=== PATIENT | female | born 1940 | race Caucasian/White ===

== ENCOUNTER 2017-07-11 10:55 | Inpatient (IN) | payer MEDICARE, OTHER ==
[2017-07-09 12:15] LABS: HEMATOCRIT 40.3 % (34.6-47.8); HEMOGLOBIN 13.1 g/dL (11.7-16.4); WHITE BLOOD COUNT 7.1 x10^3/uL (3.4-10)
[2017-07-09 12:22] LABS: BLOOD UREA NITROGEN 9 mg/dL (7-18)
[2017-07-09 12:26] LABS: ASPARTATE AMINO TRANSFERASE 10 U/L (15-37)
[~2017-07-11] VITALS: Ht 167.6 cm; Wt 76.0 kg
[~2017-07-11 10:55] MED LIST: ATOR10TA9 PO; BUDE3CAP2 PO; CALC-173 PO; CARB1TAB47 PO; CHOL10003 PO; DULO30CA2 PO; EPINEPHRINE 1 MG/ML, 1ML ONE; KETOROLAC 60 MG/2 ML ONE; LACT1CAP35 PO; LAMO25TA PO; LEVO75TA5 PO; METH500T7 PO; MULT-658 PO; ROPIvacaine/PF 0.2%, 20 ML ONE; SODIUM CHLORIDE 0.9% 100 ML ONE; TRAM50TA2 PO; TRANEXAMIC ACID 100 MG/ML, 10ML ONE; TRAZ100T15 PO; VANCOMYCIN 1,000 MG ONE
[2017-07-11] MEDS ORDERED: LACTATED RINGERS 1,000 ML IV SCH (14:25)
[2017-07-11] MEDS ORDERED: GABAPENTIN 300 MG CAPSULE PO STA (14:28)
[2017-07-11] MEDS ORDERED: FAMOTIDINE 20 MG TABLET PO STA (14:28)
[2017-07-11] MEDS ORDERED: ACETAMINOPHEN 500 MG TABLET PO STA (14:28)
[2017-07-11] MEDS ORDERED: MIDAZOLAM 1 MG/ML, 2ML ONE (14:37)
[2017-07-11] MEDS ORDERED: FENTANYL PF 250 MCG/5ML ONE (14:37)
[2017-07-11] MEDS ORDERED: PROPOFOL 10 MG/ML, 20ML ONE (14:39)
[2017-07-11] MEDS ORDERED: DEXAMETHASONE 4 MG/ML, 1ML ONE (14:39)
[2017-07-11] MEDS ORDERED: ONDANSETRON 2MG/ML, 2ML ONE (14:39)
[2017-07-11] MEDS ORDERED: CEFAZOLIN 1,000 MG ONE (14:39)
[2017-07-11] MEDS ORDERED: ACETAMINOPHEN 500 MG TABLET ONE (14:45)
[2017-07-11] MEDS ORDERED: OxyconTIN ER 10 MG TAB.ER ONE (14:45)
[2017-07-11] MEDS ORDERED: VANCOMYCIN PER PHARMACY MC SCH (14:45)
[2017-07-11] MEDS ORDERED: FAMOTIDINE 40 MG TABLET ONE (14:45)
[2017-07-11] MEDS ORDERED: GABAPENTIN 300 MG CAPSULE ONE (14:46)
[2017-07-11] MEDS ORDERED: OxyconTIN ER 10 MG TAB.ER PO STA (14:52)
[2017-07-11] MEDS ORDERED: METHOCARBAMOL 500 MG TABLET PO PRN (15:00)
[2017-07-11] MEDS ORDERED: ONDANSETRON 2MG/ML, 2ML IV PRN (15:00)
[2017-07-11] MEDS ORDERED: SENNA/DOCUSATE TABLET PO PRN (15:00)
[2017-07-11] MEDS ORDERED: BISACODYL 10 MG SUPP PR PRN (15:00)
[2017-07-11] MEDS ORDERED: ONDANSETRON 4 MG TABLET PO PRN (15:00)
[2017-07-11] MEDS ORDERED: MAGNESIUM HYDROXIDE 8%, 30ML UDC PO PRN (15:00)
[2017-07-11] MEDS ORDERED: HYDROcodone/APAP 5/325 TABLET PO PRN (15:00)
[2017-07-11] MEDS ORDERED: ZOLPIDEM 5MG TABLET PO PRN (15:00)
[2017-07-11] MEDS ORDERED: SCOPOLAMINE PATCH, 1.5MG PATCH.TD72 TD ONE (15:00)
[2017-07-11] MEDS ORDERED: ACETAMINOPHEN 650 MG/20.3 ML UDC PO PRN (15:00)
[2017-07-11] MEDS ORDERED: CEFAZOLIN PMX 2GM/50ML 50 ML IVPB SCH (15:00)
[2017-07-11] MEDS ORDERED: DIPHENHYDRAMINE 50 MG CAPSULE PO PRN (15:00)
[2017-07-11] MEDS ORDERED: TRAZODONE 100MG TABLET PO PRN (15:00)
[2017-07-11] MEDS ORDERED: VANCOMYCIN 1,600 MG in SODIUM CHLORIDE 0.9% 250 ML IV ONE (15:30)
[2017-07-11] MEDS ORDERED: LABETALOL 5MG/ML, 20ML ONE (15:41)
[2017-07-11] MEDS ORDERED: DIAZEPAM 5 MG/ML, 2ML IVPush PRN (16:00)
[2017-07-11] MEDS ORDERED: PROMETHAZINE 25 MG/ML, 1ML IV PRN (16:00)
[2017-07-11] MEDS ORDERED: ONDANSETRON 2MG/ML, 2ML IVPush PRN (16:00)
[2017-07-11] MEDS ORDERED: MIDAZOLAM 1 MG/ML, 2ML IV PRN (16:00)
[2017-07-11] MEDS ORDERED: ALBUTEROL/IPRATROPIUM 2.5MG/0.5MG, 3 ML NPPB PRN (16:00)
[2017-07-11] MEDS ORDERED: OXYcodone 5 MG/5 ML ORAL.SOL UDC PO PRN (16:00)
[2017-07-11] MEDS ORDERED: hydrALAzine 20 MG/ML, 1ML IV PRN (16:00)
[2017-07-11] MEDS ORDERED: MEPERIDINE/PF 25MG/0.5ML IVPush PRN (16:00)
[2017-07-11] MEDS ORDERED: TEMPLATE NON-FORMULARY MED. (Carbidopa/Levodopa** (Carbidopa-Levo 25-100 Mg Odt**) 1 TAB) PO SCH (16:00)
[2017-07-11] MEDS ORDERED: HYDROmorphone 1 MG/ML, 1ML IV PRN (16:00)
[2017-07-11] MEDS ORDERED: LABETALOL 5MG/ML, 20ML IV PRN (16:00)
[2017-07-11] MEDS ORDERED: SUCCINYLCHOLINE 20 MG/ML, 10ML ONE (16:01)
[2017-07-11] MEDS ORDERED: NEOSTIGMINE 1 MG/ML, 10ML ONE (16:01)
[2017-07-11] MEDS ORDERED: GLYCOPYRROLATE 0.4 MG/2 ML, 2ML ONE ×2 (16:01)
[2017-07-11] MEDS ORDERED: ROCURONIUM 10 MG/ML,10ML ONE (16:01)
[2017-07-11] MEDS ORDERED: LIDOCAINE GEL 2%, 5ML ONE (16:07)
[2017-07-11] MEDS ORDERED: OXYcodone 5 MG/5 ML ORAL.SOL UDC ONE (16:58)
[2017-07-11] MEDS ORDERED: FENTANYL PF 100 MCG/2ML ONE ×2 (16:58→17:53)
[2017-07-11] MEDS: FENTANYL PF 100 MCG/2ML IV PRN ×4 (17:00→17:55)
[2017-07-11 18:40] VITALS: BP 111/48
[2017-07-11] MEDS: NS + 20MEQ KCL 1,000 ML IV SCH (20:14)
[2017-07-11] MEDS: DOCUSATE 100 MG CAPSULE PO SCH (20:15)
[2017-07-11] MEDS: ATORVASTATIN 10 MG TABLET PO SCH (20:15)
[2017-07-11] MEDS: ASPIRIN 81 MG TABLET EC PO SCH (20:15)
[2017-07-11] MEDS: OXYcodone IR 5MG TABLET PO PRN (21:34)
[2017-07-11] MEDS: LAMOTRIGINE 25 MG TABLET PO SCH (22:56)
[2017-07-11] MEDS: CARBIDOPA/LEVODOPA 25 MG/100 MG TABLET PO SCH (22:56)
[2017-07-11] MEDS: CEFAZOLIN 2,000 MG in DEXTROSE 5% 50 ML IVPB SCH (22:57)
[2017-07-12 01:02] VITALS: BP 101/48
[2017-07-12 05:15] VITALS: BP 104/55
[2017-07-12] MEDS: ASPIRIN 81 MG TABLET EC PO SCH ×2 (05:35→18:35)
[2017-07-12] MEDS: OXYcodone IR 5MG TABLET PO PRN ×4 (05:36→21:35)
[2017-07-12 05:58] LABS: HEMATOCRIT 30.4 % (34.6-47.8); HEMOGLOBIN 10.1 g/dL (11.7-16.4)
[2017-07-12] MEDS ORDERED: DEXAMETHASONE 4 MG/ML, 1ML IVPush SCH (06:00)
[2017-07-12] MEDS: CEFAZOLIN 2,000 MG in DEXTROSE 5% 50 ML IVPB SCH (06:08)
[2017-07-12] MEDS: NS + 20MEQ KCL 1,000 ML IV SCH ×2 (08:00→20:30)
[2017-07-12] MEDS: LAMOTRIGINE 25 MG TABLET PO SCH ×2 (08:01→21:36)
[2017-07-12] MEDS: DOCUSATE 100 MG CAPSULE PO SCH ×2 (08:01→21:37)
[2017-07-12] MEDS: LEVOTHYROXINE 75 MCG TABLET PO SCH (08:01)
[2017-07-12] MEDS: BUDESONIDE 3 MG CAP DR.ER PO SCH (08:02)
[2017-07-12] MEDS: DULOXETINE 30 MG CAPSULE.DR PO SCH (08:03)
[2017-07-12] MEDS: CARBIDOPA/LEVODOPA 25 MG/100 MG TABLET PO SCH ×3 (08:03→21:37)
[2017-07-12] MEDS: ACETAMINOPHEN 500 MG TABLET PO SCH ×3 (08:05→21:35)
[2017-07-12 08:30] VITALS: BP 111/62
[2017-07-12 12:07] VITALS: BP 95/47
[2017-07-12 16:06] VITALS: BP 114/41
[2017-07-12 20:00] VITALS: BP 97/43
[2017-07-12] MEDS: ATORVASTATIN 10 MG TABLET PO SCH (21:36)
[2017-07-13 02:48] VITALS: BP 142/65
[2017-07-13 04:56] LABS: HEMATOCRIT 26.1 % (34.6-47.8); HEMOGLOBIN 8.9 g/dL (11.7-16.4)
[2017-07-13] MEDS: LEVOTHYROXINE 75 MCG TABLET PO SCH (05:59)
[2017-07-13] MEDS: ASPIRIN 81 MG TABLET EC PO SCH ×2 (05:59→17:44)
[2017-07-13] MEDS: NS + 20MEQ KCL 1,000 ML IV SCH ×2 (08:10→22:31)
[2017-07-13] MEDS: DULOXETINE 30 MG CAPSULE.DR PO SCH (08:15)
[2017-07-13] MEDS: LAMOTRIGINE 25 MG TABLET PO SCH ×2 (08:15→21:14)
[2017-07-13] MEDS: CARBIDOPA/LEVODOPA 25 MG/100 MG TABLET PO SCH ×3 (08:15→21:16)
[2017-07-13] MEDS: DOCUSATE 100 MG CAPSULE PO SCH ×2 (08:15→21:14)
[2017-07-13] MEDS: ACETAMINOPHEN 500 MG TABLET PO SCH ×3 (08:15→21:14)
[2017-07-13] MEDS: BUDESONIDE 3 MG CAP DR.ER PO SCH (09:00)
[2017-07-13 10:23] VITALS: BP 102/61
[2017-07-13 14:04] VITALS: BP 108/59
[2017-07-13] MEDS: OXYcodone IR 5MG TABLET PO PRN ×2 (17:44→22:31)
[2017-07-13] MEDS ORDERED: DIPHENHYDRAMINE 25 MG CAPSULE ONE (21:05)
[2017-07-13] MEDS: ATORVASTATIN 10 MG TABLET PO SCH (21:16)
[2017-07-13 21:58] VITALS: BP 127/65
[2017-07-14 02:00] VITALS: BP 122/77
[2017-07-14] MEDS: OXYcodone IR 5MG TABLET PO PRN ×3 (02:19→12:55)
[2017-07-14 03:04] LABS: HEMOGLOBIN 8.6 g/dL (11.7-16.4)
[2017-07-14] MEDS: ASPIRIN 81 MG TABLET EC PO SCH (05:53)
[2017-07-14] MEDS: LEVOTHYROXINE 75 MCG TABLET PO SCH (05:54)
[2017-07-14] MEDS ORDERED: OXYC5TAB3 PO (07:54)
[2017-07-14] MEDS ORDERED: TRAM50TA2 PO (07:54)
[2017-07-14] MEDS ORDERED: ONDA4TAB10 PO (07:55)
[2017-07-14] MEDS ORDERED: MELO7.5T31 PO (07:55)
[2017-07-14] MEDS: DULOXETINE 30 MG CAPSULE.DR PO SCH (09:08)
[2017-07-14] MEDS: BUDESONIDE 3 MG CAP DR.ER PO SCH (09:09)
[2017-07-14 09:10] VITALS: BP 121/54
[2017-07-14] MEDS: LAMOTRIGINE 25 MG TABLET PO SCH (09:10)
[2017-07-14] MEDS: ACETAMINOPHEN 500 MG TABLET PO SCH (09:10)
[2017-07-14] MEDS: CARBIDOPA/LEVODOPA 25 MG/100 MG TABLET PO SCH (09:11)
[2017-07-14] MEDS: DOCUSATE 100 MG CAPSULE PO SCH (09:19)
[2017-07-14] MEDS: NS + 20MEQ KCL 1,000 ML IV SCH (10:55)
[2017-07-14 13:00] VITALS: BP 129/59
[2017-07-14] MEDS ORDERED: ASPI-496 PO (13:46)
[2017-07-14 15:35] VITALS: BP 128/59
== END 2017-07-14 15:45 | disposition home or self-care (01) | DRG 469 ==
LOC: EDSTATUS 11:48 → ORIP 14:03 → 4NOR 18:28
PROVIDERS: ADMIT Orthopaedic Surgery; ATTEND Orthopaedic Surgery
PROC: 0SRB02A Replacement of Left Hip Joint with Metal on Polyethylene Synthetic Substitute, Uncemented, Open Approach (ICD-10-PCS; principal; 2017-07-11 16:15)
DX: M16.12 Unilateral primary osteoarthritis, left hip (principal); S72.113A Displaced fracture of greater trochanter of unspecified femur, initial encounter for closed fracture
CPT/HCPCS: 36415; 72170; 76000; 80053; 83036; 85014; 85018; 85025; 85610; 85730; 86850; 86870; 86900; 86922; 86923; 87081; 93005; C1713; J0171; J0690; J1100; J1885; J2250; J2405; J2704; J2710; J2795; J3010; J3370; J3480; C1776; J0330; J7120

== ENCOUNTER → 2017-09-18 | Outpatient (CLI) | payer OTHER ==
[~2017-09-18] MED LIST changes: +ACET-76 PO; +ASPI-496 PO; -EPINEPHRINE 1 MG/ML, 1ML ONE; -KETOROLAC 60 MG/2 ML ONE; +MELO7.5T31 PO; +ONDA4TAB10 PO; +OXYC5TAB3 PO; -ROPIvacaine/PF 0.2%, 20 ML ONE; -SODIUM CHLORIDE 0.9% 100 ML ONE; -TRANEXAMIC ACID 100 MG/ML, 10ML ONE; -VANCOMYCIN 1,000 MG ONE
[2017-09-18 15:46] LABS: BASOPHILS # (AUTO) 0.03 x10^3/uL (0-0.1); BASOPHILS % (AUTO) 0 % (0-1); EOSINOPHILS # (AUTO) 0.39 x10^3/uL (0-0.4); EOSINOPHILS % (AUTO) 5 % (1-7); LYMPHOCYTES # (AUTO) 2.38 x10^3/uL (1-3.4); LYMPHOCYTES % (AUTO) 29 % (22-44); MD NO; MEAN CORPUSCULAR HEMOGLOBIN 31.3 pg (27.0-34.8); MEAN CORPUSCULAR VOLUME 94.9 fL (80-100); MEAN PLATELET VOLUME 7.9 fL (7.4-10.4); MONOCYTES # (AUTO) 0.52 x10^3/uL (0.2-0.8); MONOCYTES % (AUTO) 6 % (2-9); NEUTROPHILS # (AUTO) 4.82 x10^3/uL (1.8-6.8); NEUTROPHILS % (AUTO) 59 % (42-75); PLATELET COUNT 355 x10^3/uL (130-400); RED BLOOD COUNT 3.78 x10^6/uL (3.82-5.3); RED CELL DISTRIBUTION WIDTH 15.1 % (9.6-15.2)
[2017-09-18 15:51] LABS: INTERNATIONAL NORMALIZED RATIO 0.96 (0.93-1.1)
[2017-09-18 15:54] LABS: ALANINE AMINOTRANSFERASE 9 U/L (12-78); ALBUMIN 3.8 g/dL (3.4-5.0); ANION GAP 7 mmol/L (5-15); CALCIUM 9.1 mg/dL (8.5-10.1); CHLORIDE 106 mmol/L (98-107)
[2017-09-18 15:57] LABS: ALKALINE PHOSPHATASE 98 U/L (45-117); BILIRUBIN,TOTAL 0.2 mg/dL (0.2-1.0); CREATININE 0.98 mg/dL (0.55-1.02); TOTAL PROTEIN 7.7 g/dL (6.4-8.2)
[2017-09-18 16:00] LABS: HEMOGLOBIN A1C 5.2 % (4.2-6.3)
[2017-09-18 17:25] LABS: CULTURE INDICATED? YES; MICROSCOPIC INDICATED
== END | disposition home or self-care (01) ==
LOC: STAR 14:12
PROVIDERS: ATTEND Orthopaedic Surgery
DX: Z01.818 Encounter for other preprocedural examination (principal); M16.12 Unilateral primary osteoarthritis, left hip; Z96.642 Presence of left artificial hip joint; Z79.01 Long term (current) use of anticoagulants; Z79.899 Other long term (current) drug therapy
CPT/HCPCS: 36415; 80053; 81001; 83036; 85025; 85610; 85730; 87081; 87086; 87806; G0475